=== PATIENT | female | born 1950 | race Caucasian/White ===

== ENCOUNTER 2017-02-12 12:40 | Emergency (ER) | payer MEDICAID ==
[~2017-02-12 12:40] MED LIST: Donnatal Elixir 16.2 MG/5 ML UDCUP ONE; Iopamidol 370 76% 100 ML VIAL ONE
[2017-02-12] MEDS ORDERED: Ondansetron HCl/PF 4 MG/2 ML Vial ONE (13:07)
[2017-02-12] MEDS ORDERED: Ketorolac Tromethamine 30 MG/ML VIAL ONE (13:07)
[2017-02-12] MEDS ORDERED: Lidocaine Viscous Sol 2% 15 ml UD Cup ONE (13:08)
[2017-02-12] MEDS ORDERED: Donnatal Elixir 16.2 MG/5 ML UDCUP ONE (13:08)
[2017-02-12] MEDS ORDERED: Mag-Al Plus 1200 MG/1200 MG/120 MG/30 ML UDCUP ONE (13:08)
[2017-02-12 13:32] LABS: #Basophils 0.1 thou/uL (0.0-0.2); #Eosinphils 0.2 thou/uL (0.0-0.7); #Lymphocytes 1.9 thou/uL (1.20-3.40); #Monocytes 0.3 thou/uL (0.11-0.59); #Neutrophils 4.3 thou/uL (1.40-6.50); %Basophils 1.2 % (0.0-1.0); %Eosinophils 2.6 % (0.0-10.0); %Lymphocytes 28.3 % (21.0-51.0); %Neutrophils 62.9 % (42.0-75.0); Hemoglobin 14.5 g/dL (12.0-16.0); Mean Corpuscular HGB CONC 31.7 g/dL (32.0-36.0); Mean Corpuscular Hemoglobin 29.1 pg (27.0-31.0); Mean Corpuscular Volume 91.6 fl (81.0-99.0); Platelet Count 194 thou/uL (130-400); RBC Distribution Width 13.7 % (11.5-14.5); Red Blood Cell (RBC) Count 4.97 mill/uL (4.20-5.40); White Blood Cell (WBC) Count 6.8 thou/uL (4.8-10.8)
[2017-02-12 13:57] LABS: ALT (SGPT) 6 U/L (8-55); AST (SGOT) 11 U/L (5-34); Albumin 3.5 g/dL (3.4-4.8); Alkaline Phosphatase 102 U/L (40-150); Anion Gap 11 mmol/L (10-20); BUN (Urea Nitrogen) 7 mg/dL (9.8-20.1); Bilirubin, Total 0.4 mg/dL (0.2-1.2); CK (CPK) 42 U/L (29-168); Calc. Creatinine Clearance 0 mL/min (70-130); Calcium 9.1 mg/dL (7.8-10.44); Carbon Dioxide 32 mmol/L (23-31); Chloride 103 mmol/L (98-107); Estimated GFR-MDRD Greater than 90; Globulin 2.9 g/dL (2.4-3.5); Glucose 93 mg/dL (80-115); Lipase 13 U/L (8-78); Protein, Total 6.4 g/dL (6.0-8.3); Sodium 142 mmol/L (136-145)
[2017-02-12 14:23] LABS: Troponin I Less than 0.010 ng/mL (< 0.028)
[2017-02-12 14:29] LABS: CKMB 1.3 ng/mL (0-6.6)
[2017-02-12] MEDS ORDERED: Morphine 10 MG/ML VIAL ONE (14:32)
--- NOTE | 2017-02-12 15:17 | CT ---
ABDOMEN AND PELVIC CT WITH CONTRAST: COMPARISON: No prior comparison. CLINICAL HISTORY: Left upper quadrant pain, progressive. FINDINGS: Prior cholecystectomy. No acute abnormality of the liver or spleen. No peripancreatic inflammation . No evidence of adrenal mass or acute renal pathology. The contrast-opacified small bowel is norm al in caliber. There is extensive retained fecal material throughout the colon. No free air. Norm al-caliber appendix is seen within the right lower quadrant. There is no consolidation at the image d lung bases. Diffuse osseous degenerative change is present. There is atherosclerosis. IMPRESSION: 1. Constipation. 2. Otherwise, no acute process identified. POS: [facility]
[2017-02-12] MEDS ORDERED: Magnesium Citrate 300 ML BOT ONE (16:17)
[2017-02-12] MEDS ORDERED: HYDROcodone/Acetaminophen 10/325 mg Tablet ONE (16:17)
== END 2017-02-12 16:30 | disposition home or self-care (01) ==
LOC: MADERS 12:40
DX: K59.00 Constipation, unspecified (principal); E66.9 Obesity, unspecified; I50.9 Heart failure, unspecified; J44.9 Chronic obstructive pulmonary disease, unspecified; I25.2 Old myocardial infarction; E11.9 Type 2 diabetes mellitus without complications; F17.210 Nicotine dependence, cigarettes, uncomplicated; Z85.3 Personal history of malignant neoplasm of breast; Z79.899 Other long term (current) drug therapy
CPT/HCPCS: 74177; 80053; 82150; 82550; 82553; 83690; 84484; 85025; 96374; 96375; J1885; J2270; J2405